=== PATIENT | male | born 1945 | race Caucasian/White ===

== ENCOUNTER → 2017-02-24 | Outpatient (CLI) | payer OTHER | LOC: FIMAGING 08:52 | PROVIDERS: ATTEND Emergency Medicine | DX: R05 Cough (principal) ==

== ENCOUNTER → 2017-03-09 | Outpatient (CLI) | payer OTHER | LOC: FIMAGING 03-08 20:00 | PROVIDERS: ATTEND Internal Medicine Pulmonary Disease | DX: Z09 Encounter for follow-up examination after completed treatment for conditions other than malignant neoplasm (principal); Z87.09 Personal history of other diseases of the respiratory system ==

== ENCOUNTER → 2017-03-13 | Outpatient (CLI) | payer OTHER | LOC: CIMAGING 09:15 | PROVIDERS: ATTEND Internal Medicine Pulmonary Disease | DX: R04.2 Hemoptysis (principal); K44.9 Diaphragmatic hernia without obstruction or gangrene; K80.20 Calculus of gallbladder without cholecystitis without obstruction | CPT/HCPCS: 71250-PO ==

== ENCOUNTER 2017-03-16 13:49 | Day surgery (SDC) | payer OTHER ==
[2017-03-16] MEDS ORDERED: NALOXONE HCL 0.4 MG/ML INJ ONE (14:12)
[2017-03-16] MEDS ORDERED: LIDOCAINE 1% 300 MG/30 ML SDV ONE (14:12)
[2017-03-16] MEDS ORDERED: ALBUTEROL 3 ML DEYVIAL ONE (14:12)
[2017-03-16] MEDS ORDERED: FLUMAZENIL 0.5 MG/5 ML MDV IVP ONE (14:12)
[2017-03-16] MEDS ORDERED: MIDAZOLAM 2 MG/2 ML VIAL ONE (14:12)
[2017-03-16] MEDS ORDERED: fentaNYL 100 MCG/2 ML INJ ONE (14:13)
[2017-03-16] MEDS ORDERED: LIDOCAINE 2% JELLY 5 ML TUBE ONE (14:14)
[2017-03-16] MEDS ORDERED: LIDOCAINE HCL 4% TOPICAL SOLN 50ML ONE (14:14)
[2017-03-16] MEDS ORDERED: LIDOCAINE 1% 2 ML INJ ID PRN (14:25)
[2017-03-16] MEDS ORDERED: NS 500 ML IV SCH (14:30)
[2017-03-16 15:56] VITALS: RESP 12
[2017-03-16 16:19] VITALS: BP 106/72; PULSE 78; TEMP 98.8; O2SAT 91
--- NOTE | 2017-03-16 19:51 | GPN ---
[f rep st] PROCEDURE NOTE DATE OF PROCEDURE: 03/16/2017 NAME OF PROCEDURE: Bronchoscopy. INDICATION: Persistent cough with a small amount of mucus and hemoptysis; this is associated with c jorge. He recently had a left lower lobe infiltrate which has resolved. CT scan of the chest is ne gative for significant findings. Specifically, there are no masses, no definite evidence of bronchi ectasis, no significant infiltrates, etc. Some very minor changes consistent with some minimal lowe r zone scarring may be present. This procedure is being done to obtain deep cultures and to assess his airways. PROCEDURE NOTE: The procedure was done in the endoscopy unit. Informed consent was obtained from t he patient. Appropriate time-out was performed. Negative pressure room was utilized. N95 masks we re worn. 5 cc of 4% lidocaine and a small amount of Hurricaine spray were used for topical anesthes ia to the posterior oropharynx. Approximately 15 cc of 1% lidocaine was used to anesthetize the voc al cords and tracheobronchial tree. Conscious sedation included 4 mg of Versed and 100 mcg of fenta nyl. Fiberoptic bronchoscope was passed via a bite block orally into the larynx. The laryngeal structure s were normal. The vocal cords moved normally with respiration. The bronchoscope was then advanced into the trachea and into the lower tracheobronchial tree bilaterally. All areas were observed to at least the first subsegmental level. Anatomy was normal bilaterally. There were no endobronchial lesions. Mucus and secretions were minimal. No blood was found. There were no bloody casts and n o evidence of the globules of mucus that the patient reports. The mucosa was somewhat friable and b led easily with scope trauma. Bronchoalveolar lavage and bronchial washings were performed bilatera lly and combined. Samples were sent for routine aerobic, bacteria, fungal and mycobacterial culture s, as well as cytologies. The patient tolerated the procedure well. There were no complications. Oxygen saturations on suppl emental oxygen and vital signs remained normal throughout the procedure. IMPRESSION: Normal endobronchial anatomy without significant secretions or findings. /[id number]/MODL
== END 2017-03-16 16:56 | disposition home or self-care (01) ==
LOC: FSGY 13:49
PROVIDERS: ATTEND Internal Medicine Pulmonary Disease
PROC: 0B9M8ZX Drainage of Bilateral Lungs, Via Natural or Artificial Opening Endoscopic, Diagnostic (ICD-10-PCS; principal; 2017-03-16 14:30)
DX: R05 Cough (principal); R04.2 Hemoptysis; R61 Generalized hyperhidrosis; Z87.01 Personal history of pneumonia (recurrent)
CPT/HCPCS: J2250; J2310; J3010